=== PATIENT | male | born 1985 | race Caucasian/White ===

== ENCOUNTER 2017-05-25 17:42 | Emergency (ER) | payer SELFPAY ==
[2017-05-25] MEDS ORDERED: ACETAMINOPHEN 325 MG TABLET (FP) PO ONE (17:46)
[2017-05-25] MEDS ORDERED: DIPHTH,PERTUSS(ACELL),TET VAC 0.5 ML VIAL IM ONE (17:46)
[2017-05-25 17:48] VITALS: BP 122/76; PULSE 100; TEMP 98; BMI 21.0
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
== END 2017-05-25 22:37 | disposition home or self-care (01) ==
LOC: JERFT 17:42
DX: S02.2XXA Fracture of nasal bones, initial encounter for closed fracture (principal); S00.83XA Contusion of other part of head, initial encounter; S01.112A Laceration without foreign body of left eyelid and periocular area, initial encounter; V49.88XA Car occupant (driver) (passenger) injured in other specified transport accidents, initial encounter; Y92.488 Other paved roadways as the place of occurrence of the external cause; Y93.89 Activity, other specified; Y99.8 Other external cause status
CPT/HCPCS: 70486-TC; 99282-25

== ENCOUNTER 2017-05-31 14:38 | Emergency (ER) | payer SELFPAY ==
--- NOTE | 2017-05-31 14:47 | PDOC ---
Rapid Medical Evaluation Time Seen by Provider: 05/31/17 14:45 Medical Evaluation: Allergies Allergy/AdvReac Type Severity Reaction Status Date / Time No Known Allergies Allergy Verified 05/25/17 17:44 05/31/17 14:45 The patient presents with a chief complaint of: Stitch removal from L eye. No other complaints at this time I have performed a brief in-person evaluation of this patient; Pertinent physical exam findings: Well healed wound to the L eyelid. EOMI intact , PERRLA. I have ordered the following: Nothing The patient will proceed to the ED for further evaluation.
[2017-05-31 14:48] VITALS: BP 113/64; PULSE 91; TEMP 98.6; BMI 21.2
--- NOTE | 2017-05-31 15:11 | PDOC ---
Suture Removal/Wound Check HPI - History of Present Illness Chief Complaint: Suture/Staple Removal(Here) Stated Complaint: STITCHES REMOVAL Time Seen by Provider: 05/31/17 14:45 History Source: Yes: Patient Exam Limitations: Yes: No Limitations Treated at: [facility] Date of Last ED visit: 05/25/16 - Previous ED Treatment Type of procedure performed on last visit: Yes: Laceration Repair Tetanus Immunization: Yes: Up to Date, Given at last ED visit Past History - Travel Traveled outside of the country in the last 30 days: No Close contact w/someone who was outside of country & ill: No - Past Medical History Allergies/Adverse Reactions: Allergies Allergy/AdvReac Type Severity Reaction Status Date / Time No Known Allergies Allergy Verified 05/31/17 14:46 Home Medications: Ambulatory Orders NK [No Known Home Medication] 05/31/17 COPD: No - Suicide/Smoking/Psychosocial Hx Smoking History: Current every day smoker Have you smoked in the past 12 months: Yes Number of Cigarettes Smoked Daily: 30 Information on smoking cessation initiated: No 'Breaking Loose' booklet given: 05/25/17 Hx Alcohol Use: No Drug/Substance Use Hx: No Substance Use Type: None Suture Removal/Wound Check PE - Physical Exam Laceration/Wound Check Symptoms: reports: None, Improved. denies: Pain, Redness , Bleeding Current Severity Level: None Pain Localization: None Location of Laceration/Wound: left: Eye (lid, 6 simple interrupted sutures intact. EOMI, PERRLA) *Review of Systems - Review of Systems Able to Perform ROS?: Yes Constitutional: No: Chills, Fever, Weakness Integumentary: Yes: Other (healed laceration to L eyelid. stitches in place) All Other Systems: Reviewed and Negative Medical Decision Making - Medical Decision Making 05/31/17 15:19 Pt presents for suture removal for stitches on his L eye lid. wounds are well approximated and healed at this time. Area cleaned with betadine. 6 simple interrupted sutures removed. Pt. tolerated procedure well. D.c home with instructions for continued care of his wound. Tetanus updated at last ED visit. *DC/Admit/Observation/Transfer Diagnosis at time of Disposition: Encounter for removal of sutures - Discharge Dispostion Disposition: HOME Condition at time of disposition: Good Admit: No - Referrals - Patient Instructions Printed Discharge Instructions: DI for Suture Removal Additional Instructions: You had your stitches removed today. Keep the area clean and dry. When you wash your face, pat the area dry. You may use vasaline on the area once a day to help with scarring. Continue to monitor for signs of infection including fevers , green drainage or swelling. Return to the ED if you have any changes in your symptoms or any new symptoms - Post Discharge Activity
== END 2017-05-31 15:38 | disposition home or self-care (01) ==
LOC: JERFT 14:38
DX: Z48.02 Encounter for removal of sutures (principal)
CPT/HCPCS: 99281-25